=== PATIENT | male | born 1960 | race American Indian/Alaskan Native ===

== ENCOUNTER 2016-04-11 11:43 | Emergency (ER) | payer MEDICAID ==
[2016-04-11 12:05] VITALS: BP 114/77
[2016-04-11] MEDS ORDERED: VANCOMYCIN/NS 1 GM/250 ML 250 ML IV ONE (12:23)
[2016-04-11 12:46] LABS: Basophils % (Auto) 0.5 % (0.0-1.8); Eosinophils % (Auto) 2.1 % (0.0-4.3); Hematocrit 35.6 % (35.5-45.6); Hemoglobin 11.8 gm/dl (11.8-15.2); Mean Corpuscular HGB Conc 33 % (32-34); Mean Corpuscular Hemoglobin 27 pg (28-32); Mean Corpuscular Volume 83 fl (84-94); Platelet Count 358 K/mm3 (140-440); Red Cell Distribution Width 14.7 % (13.2-15.2); White Blood Count 4.9 K/mm3 (4.5-11.0)
[2016-04-11 12:58] LABS: Anion Gap 16 mmol/L; Blood Urea Nitrogen 12 mg/dL (9-20); Calcium 8.8 mg/dL (8.4-10.2); Carbon Dioxide 28 mmol/L (22-30); Chloride 99.2 mmol/L (98-107); Glucose 76 mg/dL (75-100); Potassium 3.9 mmol/L (3.6-5.0); Sodium 139 mmol/L (137-145)
[2016-04-11 13:07] LABS: Erythrocyte Sedimentation Rate 32 mm/Hr (0-20)
--- NOTE | 2016-04-11 15:29 | Emergency Department Report ---
ED Lower Extremity HPI - General Chief Complaint: Extremity Problem,Nontraumatic Stated Complaint: INFECTED KNEE Time Seen by Provider: 04/11/16 12:13 Source: patient, EMS Mode of arrival: Stretcher Limitations: Other - History of Present Illness Initial Comments: 55 yo male with a past medical history diabetes, hypertension, and bipolar presents to Hospital complaints of wound to left knee and left thigh. Patient had a left knee replacement last year at [facility] performed by Dr. Bryant Engle. Patient states he does not currently see this physician. For the past 1-2 weeks he has had a wound to his medial left knee and now has purulent drainage from his distal thigh. Positive chills reported without fever. Pain is swelling reported to the left distal thigh rated 6/10 in intensity with a palpation. - Related Data Previous Rx's Medication Instructions Recorded Last Taken Type Ibuprofen [Motrin] 600 mg PO Q8H PRN #30 tablet 04/11/16 Unknown Rx Sulfamethoxazole/Trimethoprim 1 each PO BID #20 tablet 04/11/16 Unknown Rx [Bactrim DS TAB] traMADol [Ultram 50 MG tab] 50 mg PO Q6HR PRN #20 tablet 04/11/16 Unknown Rx Allergies Allergy/AdvReac Type Severity Reaction Status Date / Time No Known Allergies Allergy Verified 04/11/16 11:50 ED Review of Systems ROS: Stated complaint: INFECTED KNEE Other details as noted in HPI Comment: All other systems reviewed and negative Other: Constitutional: No fevers chills Eyes: No eye pain visual changes ENT: No ear pain or throat pain Neck: Denies pain Respiratory: Denies cough wheezing shortness of breath Cardiovascular: Denies chest pain, palpitations, syncope GI: Denies abdominal pain, nausea, vomiting, diarrhea : Denies dysuria Musculoskeletal: as per hpi Skin: Denies rash, lesions, erythema Neurologic: Denies headache, numbness, weakness Psychiatric: Denies suicidal ideation, hallucinations ED Past Medical Hx - Past Medical History Hx Hypertension: Yes Hx Diabetes: Yes Hx Psychiatric Treatment: Yes (bipolar) - Surgical History Additional Surgical History: LKR - Social History Smoking Status: Current Every Day Smoker Substance Use Type: None - Medications Home Medications: Home Medications Medication Instructions Recorded Confirmed Last Taken Type Ibuprofen [Motrin] 600 mg PO Q8H PRN #30 tablet 04/11/16 Unknown Rx Sulfamethoxazole/Trimethoprim 1 each PO BID #20 tablet 04/11/16 Unknown Rx [Bactrim DS TAB] traMADol [Ultram 50 MG tab] 50 mg PO Q6HR PRN #20 tablet 04/11/16 Unknown Rx ED Physical Exam - General Limitations: Other - Other Other exam information: General: No limitations, patient is alert in no acute distress Head exam: Atraumatic, normocephalic Eyes exam: Normal appearance, pupils equal reactive to light, extraocular movements intact ENT: Moist mucous membrane, normal oropharynx Neck exam: Normal inspection, full range of motion, no meningismus nontender Respiratory exam: Clear to auscultation bilateral, no wheezes, rales, crackles Cardiovascular: Normal rate and rhythm, normal heart sounds Abdomen: Soft, nondistended, and nontender, with normal bowel sounds, no rebound, or guarding Extremity: Left leg with medial knee wound exposing metallic prosthesis. Distal thigh over the area with purulent drainage and tenderness to palpation Back: Normal Inspection, full range of motion, no tenderness Neurologic: Alert, oriented x3, cranial nerves intact, no motor or sensory deficit Psychiatric: normal affect, normal mood Skin: see extermity ED Course Vital Signs 04/11/16 12:04 Temperature 97.9 F Pulse Rate 94 H Respiratory 16 Rate Blood Pressure 114/77 [Left] O2 Sat by Pulse 100 Oximetry - Reevaluation(s) Reevaluation #1: 04/11/16 15:32 pt received vancomycin - Consultations Consultation #1: 04/11/16 15:32 Case d/w with Dr Ang. i attempted to speak to pts ortho surgeon at [place] however he was not oncall and did not respond to the page request. Dr ang rec f /u with the surgeon he will likely need surgery as outpatient 04/11/16 15:34 ED Lower Extremity MDM - Lab Data Result diagrams: 04/11/16 12:30 04/11/16 12:30 Lab Results 04/11/16 04/11/16 Range/Units 12:30 12:30 WBC 4.9 (4.5-11.0) K/mm3 RBC 4.30 (3.65-5.03) M/mm3 Hgb 11.8 (11.8-15.2) gm/dl Hct 35.6 (35.5-45.6) % MCV 83 L (84-94) fl MCH 27 L (28-32) pg MCHC 33 (32-34) % RDW 14.7 (13.2-15.2) % Plt Count 358 (140-440) K/mm3 Lymph % (Auto) 35.4 H (13.4-35.0) % [place] % (Auto) 9.8 H (0.0-7.3) % Eos % (Auto) 2.1 (0.0-4.3) % Baso % (Auto) 0.5 (0.0-1.8) % Lymph # 1.7 (1.2-5.4) K/mm3 [place] # 0.5 (0.0-0.8) K/mm3 Eos # 0.1 (0.0-0.4) K/mm3 Baso # 0.0 (0.0-0.1) K/mm3 Seg Neutrophils % 52.2 (40.0-70.0) % Seg Neutrophils # 2.6 (1.8-7.7) K/mm3 ESR 32 (0-20) mm/Hr Sodium 139 (137-145) mmol/L Potassium 3.9 (3.6-5.0) mmol/L Chloride 99.2 (98-107) mmol/L Carbon Dioxide 28 (22-30) mmol/L Anion Gap 16 mmol/L BUN 12 (9-20) mg/dL Creatinine 0.5 L (0.8-1.5) mg/dL Estimated GFR > 60 ml/min BUN/Creatinine Ratio 24.00 % Glucose 76 (75-100) mg/dL Calcium 8.8 (8.4-10.2) mg/dL - Medical Decision Making Plan discharge patient home on antibiotics as recommended by orthopedics. No signs of sepsis at this time - Differential Diagnosis abscess, cellulitis, infected prosthesis Critical Care Time: No Critical care attestation.: If time is entered above; I have spent that time in minutes in the direct care of this critically ill patient, excluding procedure time. ED Disposition Clinical Impression: FHx: total knee replacement Open knee wound Qualifiers: Encounter type: initial encounter Laterality: left Qualified Code(s): S81.002A - Unspecified open wound, left knee, initial encounter Disposition: DISCHARGED TO HOME OR SELFCARE Is pt being admited?: Yes Condition: Stable Instructions: Wound Infection (ED) Additional Instructions: Take the medication as prescribed. Return if symptoms worsen. It is very important that he follow up with your orthopedic physician at [place] Prescriptions: Ibuprofen [Motrin] 600 mg PO Q8H PRN #30 tablet PRN Reason: Pain Sulfamethoxazole/Trimethoprim [Bactrim DS TAB] 1 each PO BID #20 tablet traMADol [Ultram 50 MG tab] 50 mg PO Q6HR PRN #20 tablet PRN Reason: Pain Referrals: your, orthopedic doctor [Other] - 2-3 Days Time of Disposition: 15:58
== END 2016-04-11 17:34 | disposition home or self-care (01) ==
LOC: ED 11:43
DX: S81.002A Unspecified open wound, left knee, initial encounter (principal); S71.102A Unspecified open wound, left thigh, initial encounter; I10 Essential (primary) hypertension; E11.9 Type 2 diabetes mellitus without complications; F31.9 Bipolar disorder, unspecified; F17.200 Nicotine dependence, unspecified, uncomplicated; Z96.652 Presence of left artificial knee joint; X58.XXXA Exposure to other specified factors, initial encounter; Y93.9 Activity, unspecified; Y99.9 Unspecified external cause status; Y92.89 Other specified places as the place of occurrence of the external cause
CPT/HCPCS: 36415; 80048; 85025; 85652; 87116; 96365; 99284; J3370; 87076; 87186